=== PATIENT | female | born 1985 | race Caucasian/White ===

== ENCOUNTER → 2016-08-24 | Outpatient (CLI) | payer OTHER ==
[2016-08-24 14:12] LABS: CONTROL LINE INT CTR LINE PRESENT; HIV SCRN NEGATIVE (NEGATIVE); HIV SCRN1 NEGATIVE (NEGATIVE)
[2016-08-24 14:52] LABS: FREE T4 1.37 NG/DL (0.76-1.46)
== END ==
LOC: M SMT 09:12
PROVIDERS: ATTEND Specialist
DX: Z36 Encounter for antenatal screening of mother (principal)

== ENCOUNTER → 2016-10-04 | Outpatient (CLI) | payer OTHER ==
--- NOTE | 2016-10-04 16:20 | REP ---
Clinical: Anatomical evaluation. Comparison: 06/30/2016 . Findings: Examination demonstrates a single live intrauterine in cephalic presentation. motion is identified by technologist. Placenta is noted posteriorly and grade zero without evidence for placenta previa or abruption. Amniotic fluid volume is normal. Cervix measures 3.2 cm in length and appears closed. No evidence for nuchal cord. Gestational age by current measurements 19 weeks 4 day with MARV 02/24/2017 . FHR equals 147 beats per minute. BPD 4.7 cm 20 weeks 1 day HC 17.3 cm 19 weeks 6 days AC 14.3 cm 19 weeks 5 days FL 3.1 cm 19 weeks for date HL 3.0 cm 20 weeks 0 days HC/AC ratio 1.21 Estimated weight 304 grams ( 49th percentile). Anatomical assessment demonstrates normal structures including cranium, choroid plexus, cavum, cerebellum/posterior fossa, facial features, lungs, four-chamber heart/ventricular outflow tracts, diaphragm, stomach, cord insertion/three-vessel cord, kidneys/bladder, spine, and extremities. Impression: Single live intrauterine in cephalic presentation. Anatomical assessment is complete and normal. Signed by Gilson Quiroz MD 10/04/2016 04:11 P
== END ==
LOC: M SMT 15:02
PROVIDERS: ATTEND Specialist
DX: Z36 Encounter for antenatal screening of mother (principal); Z3A.19 19 weeks gestation of pregnancy

== ENCOUNTER → 2016-11-12 | Outpatient (CLI) | payer OTHER ==
[2016-11-12 17:10] LABS: FREE T4 1.08 NG/DL (0.76-1.46)
[2016-11-12 17:46] LABS: MEAN CORPUSCULAR HEMOGLOBIN 32.9 pg (27.0-33.0); MEAN CORPUSCULAR VOLUME 96.8 fl (80.0-96.0); RED CELL DISTRIBUTION WIDTH 12.8 % (11.5-14.5); WHITE BLOOD COUNT 8.8 K/mm3 (4.0-10.0)
== END ==
LOC: M SMT 13:12
PROVIDERS: ATTEND Obstetrics & Gynecology
DX: Z36 Encounter for antenatal screening of mother (principal); Z3A.00 Weeks of gestation of pregnancy not specified

== ENCOUNTER → 2016-12-14 | Outpatient (CLI) | payer OTHER ==
[2016-12-14 14:36] LABS: FREE T4 1.14 NG/DL (0.76-1.46)
== END ==
LOC: M SMT 10:51
PROVIDERS: ATTEND Obstetrics & Gynecology
DX: Z36 Encounter for antenatal screening of mother (principal); Z3A.00 Weeks of gestation of pregnancy not specified

== ENCOUNTER → 2017-01-25 | Outpatient (CLI) | payer OTHER ==
[~2017-01-25] MED LIST: COLA100C5 PO; IBUP1TAB7 PO; LEVO25TA5 PO; OXYC1TAB23 PO; PERCOCET PO; PRENTAB55 PO
[2017-01-25 13:41] LABS: FREE T4 1.53 NG/DL (0.76-1.46)
== END ==
LOC: M SMT 08:41
PROVIDERS: ATTEND Obstetrics & Gynecology
DX: Z36 Encounter for antenatal screening of mother (principal); Z3A.00 Weeks of gestation of pregnancy not specified

== ENCOUNTER 2017-03-10 05:47 | Inpatient (IN) | payer OTHER ==
[~2017-03-10] VITALS: Ht 152.4 cm; Wt 65.0 kg
[2017-03-10] VITALS (7 sets, daily range): BP systolic 115–151; BP diastolic 69–90
[2017-03-10] MEDS ORDERED: LACTATED RINGER'S 1000 ML IV STA (06:25)
[2017-03-10] MEDS ORDERED: LR 1,000 ML IV SCH ×3 (06:25→15:15)
[2017-03-10] MEDS ORDERED: OXYTOCIN DRIP 30 UNITS in APPROPRIATE DILUENT 1 EA IV SCH (06:30)
[2017-03-10 07:07] LABS: MEAN CORPUSCULAR HGB CONC 35.6 g/dl (32.0-36.5); MEAN CORPUSCULAR VOLUME 92.8 fl (80.0-96.0); RED CELL DISTRIBUTION WIDTH 12.1 % (11.5-14.5); WHITE BLOOD COUNT 9.7 K/mm3 (4.0-10.0)
[2017-03-10] MEDS ORDERED: PRENTAB55 PO (07:10)
[2017-03-10] MEDS ORDERED: LEVO25TA5 PO (07:10)
--- NOTE | 2017-03-10 07:28 | HPE ---
DATE OF ADMISSION: 03/10/2017 Graciela is a 31-year-old, 1, para 0, at 41-6/7 weeks with an expected date of confinement (EDC) of 02/25/2017 based on last menstrual period and confirmed by first trimester ultrasound. She presents to labor and delivery today with a report of contractions that started approximately 0300 on 03/09/2017 and have been about 6 minutes apart and moderately uncomfortable. She does report a question of spontaneous rupture of membranes on the 09 of March at approximately 1930. Reports positive bloody show and continued leaking of fluid. The fetus has been active. care was initiated at [facility] in the first trimester. course complicated by a history of hypothyroidism that has been well controlled with levothyroxine 175 mcg. OBSTETRICAL HISTORY: Primigravida. OBSTETRICAL LABORATORIES: Blood type O positive. Antibody screen negative. Rubella immune. VDRL nonreactive. Urine culture no growth. Hepatitis B surface antigen negative. HIV negative. Hepatitis C antibody negative. Gonorrhea and chlamydia negative. She did undergo [facility] for genetic screening and returned a normal result with a male fetus. Her gestational diabetic screening was normal at 62 and her GBS is negative. PAST MEDICAL HISTORY: 1. Hypothyroid. 2. Childhood varicella. FAMILY HISTORY: Hypothyroid. SOCIAL HISTORY: The patient is single. Her mother is at bedside and supportive. She is a nonsmoker. Denies alcohol and drug use. No history of sexually transmitted infections and denies history of abuse - physical, sexual and emotional. ALLERGIES: No known drug allergies. CURRENT MEDICATIONS: - levothyroxine 175 mcg - vitamins OBJECTIVE: Temperature 98.9, pulse 64, blood pressure 135/90. She is alert and oriented times three, mildly uncomfortable with her contractions. heart rate is 143, moderate variability, positive accelerations, positive early decelerations, camilla approximately every 6 minutes. They do palpate moderate. Her abdomen is gravid, cephalic presentation. Estimated weight 7-1/2 pounds. Sterile speculum exam negative pooling, negative Valsalva, positive Nitrazine, negative fern, inconclusive that she is actually ruptured. SVE: 80/ -2. ASSESSMENT: Intrauterine at 41-6/7 weeks. heart rate category one. Latent labor prodromal. PLAN: Admit the patient to labor and delivery. Labs including a pre-eclamptic profile. Out of bed ad savannah. Clear liquid diet. Did discuss the plan for labor augmentation with IV Pitocin. Reviewed risks and benefits. The patient does desire to proceed with labor augmentation with IV Pitocin. All her questions have been answered. We did discuss her desire for alternative pain management. I do anticipate active labor and a spontaneous vaginal delivery. MTDD
[2017-03-10 07:29] LABS: ALT/SGPT 38 U/L (12-78); AST/SGOT 44 U/L (15-37); BILIRUBIN,TOTAL 0.6 MG/DL (0.2-1.0); CREATININE FOR GFR 0.53 MG/DL (0.55-1.02); GLOMERULAR FILTRATION RATE > 60.0 (>60)
[2017-03-10] MEDS ORDERED: FENTANYL 2MCG/ML ROPIVACAINE 0.2% IN 0.9% NACL 200ML IVBAG As Ordered ONE (09:03)
[2017-03-10] MEDS ORDERED: diphenhydrAMINE INJ 50MG/ML VIAL (J1200) IV PRN (11:00)
[2017-03-10] MEDS ORDERED: EPIDURAL COMMENT XX SCH (11:00)
[2017-03-10] MEDS ORDERED: ePHEDrine SULFATE 25 MG/5 ML(5MG/ML) SYRINGE IV PRN (11:00)
[2017-03-10] MEDS ORDERED: LACTATED RINGER'S 1000 ML IV PRN (11:00)
[2017-03-10] MEDS ORDERED: FENTANYL/ROPIVACAINE/NACL BAG 200 ML EPIDURAL SCH (11:00)
[2017-03-10] MEDS ORDERED: REFRIGERATOR IV KEYS XX PRN (11:00)
[2017-03-10] MEDS ORDERED: ONDANSETRON 4MG/2ML VIAL (J2405) IV PRN ×3 (11:00→15:15)
[2017-03-10] MEDS ORDERED: EPIDURAL/PCA KEYS XX PRN (11:00)
[2017-03-10] MEDS ORDERED: NALOXONE INJ 0.4 MG/1 ML VIAL (J2310) IV PRN ×3 (11:00→13:50)
[2017-03-10] MEDS ORDERED: BICITRA 30ML SOLN UDC As Ordered ONE (13:07)
[2017-03-10] MEDS ORDERED: ceFAZolin 2 GM/D5W 50 ML IV BAG (J0690) As Ordered ONE (13:07)
[2017-03-10] MEDS ORDERED: BICITRA 30ML SOLN UDC PO ONE (13:15)
[2017-03-10] MEDS ORDERED: LIDOCAINE PRES-FREE 2% 10ML AMP As Ordered ONE ×2 (13:19→13:52)
[2017-03-10] MEDS ORDERED: MORPHINE PRES-FREE INJ 10 MG/10 ML VIAL (J2274) As Ordered ONE (13:46)
[2017-03-10] MEDS ORDERED: NALBUPHINE HCL 10 MG/ML AMP (J2300) IV PRN (13:50)
[2017-03-10] MEDS ORDERED: METOCLOPRAMIDE INJ 10MG/2ML VIAL (J2765) IV PRN ×2 (13:50→15:15)
[2017-03-10] MEDS ORDERED: KETOROLAC 60 MG/2 ML VIAL (J1885) As Ordered ONE (13:52)
[2017-03-10] MEDS ORDERED: ONDANSETRON 4MG/2ML VIAL (J2405) As Ordered ONE (13:52)
[2017-03-10 13:55] LABS: CORD GAS ABE A -1.8; CORD GAS HCO3 A 24.9 MEQ/L; CORD GAS PCO2 A 49.3 mmHg; CORD GAS PH A 7.321 UNITS; CORD GAS PO2 A 25.4 mmHg; CORD GAS SBC A 21.9 MEQ/L; CORD GAS TCO2 A 26.4 MEQ/L
[2017-03-10 13:55] LABS: CORD GAS ABE V -2.6; CORD GAS HCO3 V 23.7 MEQ/L; CORD GAS O2 SAT V 56.7 %; CORD GAS PCO2 V 46.5 mmHg; CORD GAS PH V 7.325 UNITS; CORD GAS PO2 V 26.2 mmHg; CORD GAS SBC V 21.3 MEQ/L; CORD GAS TCO2 V 25.1 MEQ/L
[2017-03-10] MEDS ORDERED: OXYTOCIN INJ 10 UNITS/ML VIAL (J2590) As Ordered ONE (14:00)
[2017-03-10] MEDS ORDERED: PERCOCET PO (14:39)
[2017-03-10] MEDS ORDERED: IBUP1TAB7 PO (14:40)
[2017-03-10] MEDS ORDERED: OXYTOCIN DRIP 30 UNITS in APPROPRIATE DILUENT 1 EA IV ONE (14:45)
[2017-03-10] MEDS ORDERED: DOCUSATE SODIUM 100 MG CAP PO PRN (14:45)
[2017-03-10] MEDS ORDERED: PERCOCET 5MG/325MG TAB PO PRN ×3 (14:45→15:15)
[2017-03-10] MEDS ORDERED: RHOGAM 300 MCG (1500 IU) INJ (J2790) IM SCH (14:45)
[2017-03-10] MEDS ORDERED: MOM 30ML SUSPENSION UDC PO PRN (14:45)
[2017-03-10] MEDS ORDERED: MEASLES,MUMPS,RUBELLA VACCINE INJ (MMR-II) (90707) SC SCH (14:45)
[2017-03-10] MEDS ORDERED: fentaNYL 100 MCG/2 ML INJECTION (J3010) IV PRN (15:15)
[2017-03-10] MEDS: KETOROLAC 30 MG/ML VIAL (J1885) IV SCH (21:35)
[2017-03-10] MEDS: PRENATAL VITAMINS CHEWABLE TABLET PO SCH (21:36)
[2017-03-11] MEDS: KETOROLAC 30 MG/ML VIAL (J1885) IV SCH ×3 (02:47→14:07)
[2017-03-11 02:55] VITALS: BP 113/55
[2017-03-11 05:45] VITALS: BP 111/57
[2017-03-11] MEDS: LEVOTHYROXINE 25MCG TABLET (0.025MG) PO SCH (06:31)
[2017-03-11 07:32] LABS: MEAN CORPUSCULAR HGB CONC 35.1 g/dl (32.0-36.5); MEAN CORPUSCULAR VOLUME 93.8 fl (80.0-96.0); RED CELL DISTRIBUTION WIDTH 12.4 % (11.5-14.5); WHITE BLOOD COUNT 11.2 K/mm3 (4.0-10.0)
[2017-03-11] MEDS: PRENATAL VITAMINS CHEWABLE TABLET PO SCH (08:12)
--- NOTE | 2017-03-11 09:16 | RO ---
DATE OF PROCEDURE: 03/10/2017 PREPROCEDURE DIAGNOSIS: Non-reassuring heart rate tracing. POSTPROCEDURE DIAGNOSIS: Non-reassuring heart rate tracing. PROCEDURE: Primary lower transverse section. SURGEON: Priscila Lee MD METALLURGICAL TESTER: Bucky Krishnan DO ANESTHESIA: Epidural ESTIMATED BLOOD LOSS: 500 mL. INTRAVENOUS FLUIDS: 1100 mL of lactated Ringer's solution. URINE OUTPUT: 150 mL. PREOPERATIVE ANTIBIOTICS: 2 grams of Ancef OPERATIVE FINDINGS: Liveborn male infant. scores 7 and 8. Weight was 3180 grams. SPECIMENS: Cord blood and cord gases. Cord gases 7.32, 7.325 with base excesses of -1.8 and -2.6. INDICATIONS FOR OPERATION: This patient is a 31-year-old 1 who presented at 41 weeks with premature rupture of membranes. Her labor was augmented with Pitocin and during her intrapartum course, she was noted to have repetitive late decelerations, which was corrected with position change and oxygen. Pitocin was eventually discontinued. The patient continued to have a category 2 heart rate tracing with repetitive variable decelerations. Her cervical exam was 2 cm, 90% effaced, -2 station, which was unchanged from prior exam approximately 2 hours ago. At this point, the patient was remote from delivery, and I made a decision to proceed with a primary lower transverse section secondary to non-reassuring heart rate tracing DESCRIPTION OF PROCEDURE: After informed consent was obtained and written consent was reviewed, the patient was brought to the operating room where she was placed in supine position with a left lateral tilt. She was then prepped and draped in a normal sterile fashion. A Prince catheter was placed and set to gravity. A time-out in the operating room was then performed, identifying the patient, procedure to be performed as well as drug allergies. Anesthesia was tested and deemed to be adequate. A Pfannenstiel skin incision was then made and carried down to the underlying rectus fascia. The fascia was scored, and this incision was extended bilaterally. The fascia was then dissected off the underlying rectus muscles both superiorly and inferiorly. The rectus muscles were in the midline. The peritoneum was then entered. The vesicouterine peritoneum was then identified, was tented and excised to create a bladder flap. The bladder blade was then placed to retract back the bladder. Curvilinear incision was then made in the lower uterine segment. The head was then delivered through the uterine incision with the aid of a Kiwi vacuum. There was a nuchal cord, which was reduced, followed by delivery of shoulders and corpus. The cord was clamped times two. The was taken over to the warmer where Dr. Pritchett, Water [employer], awaited. Cord blood and gases were obtained. The placenta was then drained and delivered grossly intact. The uterus was then exteriorized and cleared of all clots and debris. The uterine incision was then closed in two layers using #0 Vicryl first layer in a running locking fashion, followed by a second layer for imbrication in a running nonlocking fashion. The abdomen was then suctioned. The uterus was returned in the patient's abdomen. Surgical sites were inspected and noted to be hemostatic. The anterior peritoneum was then reapproximated with #3-0 Vicryl. The rectus muscles were reapproximated with #3- 0 Vicryl. The fascia was then closed with #0 Vicryl in a running nonlocking fashion. The subcutaneous tissue was then irrigated and suctioned. Several subdermal stitches were placed with #3-0 Vicryl and the skin was closed with #4- 0 Monocryl in a subcuticular fashion. The incision was then cleaned and dried. Mastisol was applied above and below the incision. Steri-Strips were applied over the incision, and the incision was dressed. The patient was then taken to recovery in stable condition. Counts were correct. The patient decided to name her son HARISH
[2017-03-11 10:00] VITALS: BP 127/71
[2017-03-11 14:00] VITALS: BP 123/83
[2017-03-11 18:21] VITALS: BP 115/62
[2017-03-11 22:00] VITALS: BP 120/76
[2017-03-11] MEDS: IBUPROFEN 800 MG TAB PO SCH (22:58)
[2017-03-12] MEDS: LEVOTHYROXINE 25MCG TABLET (0.025MG) PO SCH (05:25)
[2017-03-12] MEDS: IBUPROFEN 800 MG TAB PO SCH ×2 (06:01→14:56)
[2017-03-12 06:36] VITALS: BP 115/61
[2017-03-12] MEDS: PRENATAL VITAMINS CHEWABLE TABLET PO SCH (08:06)
[2017-03-12] MEDS ORDERED: COLA100C5 PO (11:09)
[2017-03-12] MEDS ORDERED: OXYC1TAB23 PO (11:09)
== END 2017-03-12 17:00 | disposition home or self-care (01) | DRG 540 ==
LOC: M LDI 05:47 → M OBS 15:41
PROVIDERS: ADMIT Obstetrics & Gynecology; ATTEND Obstetrics & Gynecology
PROC: 10D00Z1 Extraction of Products of Conception, Low, Open Approach (ICD-10-PCS; principal; 2017-03-10 07:41)
DX: O48.0 Post-term pregnancy (principal); E03.9 Hypothyroidism, unspecified; Z37.0 Single live birth; Z3A.41 41 weeks gestation of pregnancy; O99.284 Endocrine, nutritional and metabolic diseases complicating childbirth; O76 Abnormality in fetal heart rate and rhythm complicating labor and delivery

== ENCOUNTER → 2017-06-22 | Outpatient (REF) | payer OTHER ==
[2017-06-22 16:24] LABS: FREE T4 1.03 NG/DL (0.76-1.46)
== END ==
LOC: M LABDRAW1 14:46
PROVIDERS: ATTEND Nurse Practitioner Family
DX: E06.3 Autoimmune thyroiditis (principal)

== ENCOUNTER → 2017-12-19 | Outpatient (REF) | payer MEDICAID ==
[2017-12-19 17:53] LABS: FREE T4 1.41 NG/DL (0.76-1.46); THYROID STIMULATING HORMONE 0.287 uIU/ML (0.358-3.740)
== END ==
LOC: M LAB REF 17:20
DX: E06.3 Autoimmune thyroiditis (principal)

== ENCOUNTER → 2018-02-27 | Outpatient (REF) | payer MEDICAID ==
[2018-02-27 12:21] LABS: FREE T4 1.16 NG/DL (0.76-1.46)
[2018-02-27 12:21] LABS: THYROID STIMULATING HORMONE 0.117 uIU/ML (0.358-3.740)
== END ==
LOC: M LABDRAW1 09:53
DX: E03.9 Hypothyroidism, unspecified (principal)
CPT/HCPCS: 84443

== ENCOUNTER → 2019-02-21 | Outpatient (REF) | payer MEDICAID, SELFPAY ==
[2019-02-23 14:17] LABS: HPV HYBRID CAPTURE II Negative (Negative)
== END ==
LOC: M LAB REF 17:19
PROVIDERS: ATTEND Advanced Practice Midwife
DX: Z12.4 Encounter for screening for malignant neoplasm of cervix (principal)

== ENCOUNTER → 2019-03-15 | Outpatient (CLI) | payer MEDICAID, SELFPAY ==
[2019-03-15 18:14] LABS: FREE T4 1.27 NG/DL (0.76-1.46); THYROID STIMULATING HORMONE 0.559 uIU/ML (0.358-3.740)
== END ==
LOC: M SMT 14:48
PROVIDERS: ATTEND Obstetrics & Gynecology
DX: E03.9 Hypothyroidism, unspecified (principal)

== ENCOUNTER → 2019-08-02 | Outpatient (REF) | payer MEDICAID ==
[2019-08-02 12:16] LABS: INFLUENZA A AMPLIFICATION NEGATIVE (NEGATIVE); INFLUENZA B AMPLIFICATION POSITIVE (NEGATIVE)
== END ==
LOC: M LAB REF 11:22
PROVIDERS: ATTEND Physician Assistant
DX: J11.1 Influenza due to unidentified influenza virus with other respiratory manifestations (principal)

== ENCOUNTER → 2020-03-12 | Outpatient (CLI) | payer MEDICAID, OTHER ==
[2020-03-12 15:19] LABS: ALBUMIN 4.1 GM/DL (3.2-5.2); ALT/SGPT 22 U/L (12-78); BILIRUBIN,TOTAL 0.7 MG/DL (0.2-1.0); BLOOD UREA NITROGEN 12 MG/DL (7-18); CALCIUM LEVEL 8.9 MG/DL (8.5-10.1); CARBON DIOXIDE LEVEL 29 MEQ/L (21-32); CHLORIDE LEVEL 107 MEQ/L (98-107); CHOLESTEROL LEVEL 175 MG/DL (<200); CHOLESTEROL RISK RATIO 2.215 (<5); GLOMERULAR FILTRATION RATE > 60.0 (>60); GLUCOSE, FASTING 77 MG/DL (70-100); HDL CHOLESTEROL 79 MG/DL (>40); LDL CHOLESTEROL 87 MG/DL (<100); NON-HDL-C 96 MG/DL; POTASSIUM SERUM 3.9 MEQ/L (3.5-5.1); SODIUM LEVEL 140 MEQ/L (136-145); THYROID STIMULATING HORMONE 0.964 uIU/ML (0.358-3.740); TOTAL PROTEIN 7.2 GM/DL (6.4-8.2); TRIGLYCERIDES LEVEL 47 MG/DL (<150)
== END ==
LOC: M PLALAB 09:25
PROVIDERS: ATTEND Nurse Practitioner Family
DX: E03.9 Hypothyroidism, unspecified (principal)

== ENCOUNTER → 2020-07-18 | Outpatient (CLI) | payer OTHER ==
[2020-07-18 12:51] LABS: BASO # 0.1 10^3/uL (0.0-0.2); BASO % 1.1 % (0.0-1.0); EOS # 0.3 10^3/uL (0.0-0.5); EOS % 4.2 % (0.0-3.0); HEMATOCRIT 41.1 % (36.0-47.0); HEMOGLOBIN 13.2 g/dl (12.0-15.5); LYMPH # 1.7 10^3/uL (1.5-5.0); LYMPH % 27.4 % (24.0-44.0); MEAN CORPUSCULAR HEMOGLOBIN 27.1 pg (27.0-33.0); MEAN CORPUSCULAR HGB CONC 32.1 g/dl (32.0-36.5); MEAN CORPUSCULAR VOLUME 84.4 fl (80.0-96.0); MONO # 0.5 10^3/uL (0.0-0.8); MONO % 8.6 % (0.0-5.0); NEUTROPHILS # 3.6 10^3/uL (1.5-8.5); NEUTROPHILS % 58.4 % (36.0-66.0); PLATELET COUNT, AUTOMATED 272 10^3/uL (150-450); RED BLOOD COUNT 4.87 10^6/uL (4.00-5.40); WHITE BLOOD COUNT 6.2 10^3/uL (4.0-10.0)
[2020-07-18 13:30] LABS: BLOOD UREA NITROGEN 11 MG/DL (7-18); CALCIUM LEVEL 9.1 MG/DL (8.5-10.1); CARBON DIOXIDE LEVEL 29 MEQ/L (21-32); CHLORIDE LEVEL 104 MEQ/L (98-107); CREATININE FOR GFR 0.77 MG/DL (0.55-1.30); FREE T4 1.39 NG/DL (0.76-1.46); GLOMERULAR FILTRATION RATE > 60.0 (>60); GLUCOSE, FASTING 86 MG/DL (70-100); MAGNESIUM LEVEL 2.1 MG/DL (1.8-2.4); POTASSIUM SERUM 4.1 MEQ/L (3.5-5.1); SODIUM LEVEL 138 MEQ/L (136-145); TOTAL 25(OH) VITAMIN D 38.6 NG/ML (30.0-100.0)
== END ==
LOC: M WUC 11:13
PROVIDERS: ATTEND Nurse Practitioner Family
DX: E03.9 Hypothyroidism, unspecified (principal); R00.2 Palpitations

== ENCOUNTER → 2020-09-11 | Outpatient (CLI) | payer OTHER ==
[2020-09-11 20:26] LABS: FREE T4 1.21 NG/DL (0.76-1.46); THYROID STIMULATING HORMONE 1.78 uIU/ML (0.358-3.740)
== END ==
LOC: M WUC 15:14
PROVIDERS: ATTEND Nurse Practitioner Family
DX: E03.9 Hypothyroidism, unspecified (principal)

== ENCOUNTER 2021-06-01 20:35 | Emergency (ER) | payer OTHER ==
[~2021-06-01] VITALS: Ht 152.4 cm; Wt 50.0 kg
--- OUTSIDE RECORDS SUMMARY | 2021-06-01 20:44 | CCD ---
Author Author [facility] Organization [facility] Address Unknown Phone Unavailable Care Team Providers Care Product Support Specialist Name Role Phone Pleskach, Selin MEATCUTTER Unavailable Unavailable Pleskach, Selin MEATCUTTER Unavailable Unavailable Pleskach, Selin MEATCUTTER Unavailable Unavailable Pleskach, Selin MEATCUTTER Unavailable Unavailable Pleskach, Selin MEATCUTTER Unavailable Unavailable Pleskach, Selin MEATCUTTER Unavailable Unavailable Pleskach, Selin MEATCUTTER Unavailable Unavailable Pleskach, Selin MEATCUTTER Unavailable Unavailable Pleskach, Selin MEATCUTTER Unavailable Unavailable Pleskach, Selin MEATCUTTER Unavailable Unavailable Pleskach, Selin MEATCUTTER Unavailable Unavailable Pleskach, Selin MEATCUTTER Unavailable Unavailable Pleskach, Selin MEATCUTTER Unavailable Unavailable Pleskach, Selin MEATCUTTER Unavailable Unavailable Pleskach, Selin MEATCUTTER Unavailable Unavailable Pleskach, Selin MEATCUTTER Unavailable Unavailable Pleskach, Selin MEATCUTTER Unavailable Unavailable Pleskach, Selin MEATCUTTER Unavailable Unavailable Pleskach, Selin MEATCUTTER Unavailable Unavailable Pleskach, Selin MEATCUTTER Unavailable Unavailable Pleskach, Selin MEATCUTTER Unavailable Unavailable Pleskach, Selin MEATCUTTER Unavailable Unavailable Pleskach, Selin MEATCUTTER Unavailable Unavailable Pleskach, Selin MEATCUTTER Unavailable Unavailable Pleskach, Selin MEATCUTTER Unavailable Unavailable Pleskach, Selin MEATCUTTER Unavailable Unavailable Pleskach, Selin MEATCUTTER Unavailable Unavailable Pleskach, Selin MEATCUTTER Unavailable Unavailable Pleskach, Selin MEATCUTTER Unavailable Unavailable Pleskach, Selin MEATCUTTER Unavailable Unavailable Pleskach, Selin MEATCUTTER Unavailable Unavailable Pleskach, Selin MEATCUTTER Unavailable Unavailable Pleskach, Selin MEATCUTTER Unavailable Unavailable Pleskach, Selin MEATCUTTER Unavailable Unavailable Pleskach, Selin MEATCUTTER Unavailable Unavailable Pleskach, Selin MEATCUTTER Unavailable Unavailable Pleskach, Selin MEATCUTTER Unavailable Unavailable Pleskach, Selin MEATCUTTER Unavailable Unavailable Pleskach, Selin MEATCUTTER Unavailable Unavailable Pleskach, Selin MEATCUTTER Unavailable Unavailable Pleskach, Selin MEATCUTTER Unavailable Unavailable Pleskach, Selin MEATCUTTER Unavailable Unavailable Pleskach, Selin MEATCUTTER Unavailable Unavailable Pleskach, Selin MEATCUTTER Unavailable Unavailable Re-disclosure Warning The records that you are about to access may contain information from federally-assisted alcohol or drug abuse programs. If such information is present, then the following federally mandated warning applies: This information has been disclosed to you from records protected by federal confidentiality rules (42 CFR part 2). The federal rules prohibit you from making any further disclosure of this information unless further disclosure is expressly permitted by the written consent of the person to whom it pertains or as otherwise permitted by 42 CFR part 2. A general authorization for the release of medical or other information is NOT sufficient for this purpose. The Federal rules restrict any use of the information to criminally investigate or prosecute any alcohol or drug abuse patient.The records that you are about to access may contain highly sensitive health information, the redisclosure of which is protected by Article 27-F of the [place] Public [facility] law. If you continue you may have access to information: Regarding HIV / AIDS; Provided by facilities licensed or operated by the [place] Office of Mental Health; or Provided by the [facility] Office for People With Developmental Disabilities. If such information is present, then the following [facility] mandated warning applies: This information has been disclosed to you from confidential records which are protected by state law. State law prohibits you from making any further disclosure of this information without the specific written consent of the person to whom it pertains, or as otherwise permitted by law. Any unauthorized further disclosure in violation of state law may result in a fine or senior living sentence or both. A general authorization for the release of medical or other information is NOT sufficient authorization for further disc losure. Family History Family Member Name Family Member Gender Family Member Status Date o f Status Description Data Source(s) Unknown Male Problem [facility] ([facility]) Unknown Male Problem [facility] ([facility]) Unknown Male Problem [facility] ([facility]) Unknown Male Problem [facility] ([facility]) Encounters Encounter Providers Location Date Indications Data Source(s ) Outpatient Attender: Selin Lea [facility] Main Office 09/12/2020 0 9:30:00 AM EST [facility] ([facility] Outpatient Attender: Selin Lea [facility] Main Office 07/18/2020 0 9:15:00 AM EST [facility] ([facility] Immunizations Vaccine Date Status Description Data Source(s) COVID-19 VACCINE Moderna 10/21/2020 12:00:00 AM EDT completed [facility] Vaccine Series Complete: YESThis Data wa s Submitted to [facility]. COVID-19 VACCINE Moderna 09/23/2020 12:00:00 AM EDT completed [facility] Vaccine Series Complete: NOThis Data was Submitted to [facility]. Medications No Information Insurance Providers Payer name Policy type / Coverage type Policy ID Covered libertarian ID Covered libertarian's relationship to johnson Policy Johnson Plan Information [facility] Medigap Part B [id number] Self 1 [id number] [facility] Community Plan Commercial [id number] Self Medicaid P [id number] S [id number] MEDICAID [id number] SP [id number] SELF PAY ONLY SP [facility] Plan Medigap Part B [id number] Self 1 [id number] [employer] Medigap Part B [id number] Family Dependent T [id number] [facility] Plan Commercial [id number] Self [id number] [facility] [employer] Plan Medigap Part B [id number] Self 1 [id number] [employer] Medigap Part B [id number] Family Dependent T [id number] [employer] Medigap Part B [id number] Family Dependent T [id number] Medicaid [place] Medigap Part B [id number] Self [id number] [facility] O [id number] S [id number] [employer] Medigap Part B [id number] Family Dependent Medicaid [place] Medigap Part B [id number] Self SELF PAY UNAVAILABLE SP UNAVAILA BLE [employer] COMMUNITY PLAN [facility] [id number] SP [id number] UN[facility] COMMUNITY [facility] [id number] SP [id number] [facility] P UNAVAILABLE [id number] S UNAVAILABLE CANCER SERVICES PROGRAM UNKNOWN SP UNKNOWN UN COMMUNITY PLAN [facility] [id number] SP [id number] [id number] SP [id number] Problems, Conditions, and Diagnoses Code Display Name Description Problem Type Effective Dates Data Source(s) [id number] Hypothyroidism Hypothyroidism Problem 09/12/2020 12:00: 00 AM EST [facility] ([facility] Surgeries/Procedures No Information Results ID Date Data Source [id number] 09/11/2020 03:16:00 PM EST [facility] ([facility] Name Value Range Interpretation Code Description Data Cora rce(s) Supporting Document(s) Thyrotropin [Units/volume] in Serum or Plasma 1.780 uIU/ML 0.358-3.74 0 [facility] ([facility] Thyroxine (T4) free [Mass/volume] in Serum or Plasma 1.21 ng/dL 0.76- 1.46 [facility] ([facility] ID Date Data Source [id number] 07/18/2020 11:13:00 AM EST [facility] ([facility] Name Value Range Interpretation Code Description Data Cora rce(s) Supporting Document(s) Glucose, Fasting 86 mg/dL 70-100 [facility] ([facility] Creatinine For GFR 0.77 mg/dL 0.55-1.30 [facility] ([facility] Blood Urea Nitrogen 11 mg/dL 7-18 [facility] ([facility] Sodium Level 138 meq/L 136-145 [facility] Potassium Serum 4.1 meq/L 3.5-5.1 [facility] Glomerular Filtration Rate Laboratory test result [facility] ([facility] <content>Units are mL/min/1.73 m2</content>
<content></content>
<content>Chronic Kidney Disease Staging per NKF:</content>
<content></content>
<content>Stage I & II GFR >=60 Normal to Mildly Decreased</content>
<content>Stage III GFR 30- 59 Moderately Decreased</content>
<content>Stage IV GFR 15-29 Severely Decreased</content>
<content>Stage V GFR <15 Very Little GFR Left</content>
<content>ESRD GFR <15 on DIRECTOR TRUST</content>
<content></content> Anion Gap 5 meq/L 8-16 [facility] Carbon Dioxide Level 29 meq/L 21-32 [facility] ([facility] Chloride Level 104 meq/L 98-107 [facility] ([facility] Calcium Level 9.1 mg/dL 8.5-10.1 [facility] ([facility] ID Date Data Source [id number] 07/18/2020 11:13:00 AM EST [facility] ([facility] Name Value Range Interpretation Code Description Data Cora rce(s) Supporting Document(s) Calcidiol [Mass/volume] in Serum or Plasma 38.6 ng/mL 30.0-100.0 [facility] ([facility] Magnesium [Mass/volume] in Serum or Plasma 2.1 mg/dL 1.8-2.4 [facility] ([facility] ID Date Data Source [id number] 07/18/2020 11:13:00 AM EST [facility] ([facility] Name Value Range Interpretation Code Description Data Cora rce(s) Supporting Document(s) White Blood Count 6.2 10 4.0-10.0 [facility] ([facility] Red Blood Count 4.87 10 4.00-5.40 [facility] ([facility] Hematocrit 41.1 % 36.0-47.0 [facility] ([facility] Mean Corpuscular Volume 84.4 fl 80.0-96.0 M [facility] ([facility] Hemoglobin 13.2 g/dL 12.0-15.5 [facility] ([facility] Mean Corpuscular HGB Conc 32.1 g/dL 32.0-36.5 [facility] ([facility] Red Cell Distribution Width 14.8 % 11.5-14.5 [facility] Mean Corpuscular Hemoglobin 27.1 pg 27.0-33.0 [facility] Platelet Count, Automated 272 10 150-450 [facility] Neutrophils % 58.4 % 36.0-66.0 [facility] Eos % 4.2 % 0.0-3.0 [facility] Butts % 8.6 % 0.0-5.0 [facility] Lymph % 27.4 % 24.0-44.0 [facility] Nucleated Red Blood Cell % 0.0 % 0-0 [facility] ([facility] Baso % 1.1 % 0.0-1.0 [facility] Immature Granulocyte % 0.3 % 0-3.0 [facility] Neutrophils # 3.6 10 1.5-8.5 [facility] Lymph # 1.7 10 1.5-5.0 [facility] Butts # 0.5 10 0.0-0.8 [facility] Baso # 0.1 10 0.0-0.2 [facility] Eos # 0.3 10 0.0-0.5 [facility] ID Date Data Source [id number] 07/18/2020 11:13:00 AM EST [facility] ([facility] Name Value Range Interpretation Code Description Data Cora rce(s) Supporting Document(s) Thyrotropin [Units/volume] in Serum or Plasma 1.960 uIU/ML 0.358-3.74 0 [facility] Thyroxine (T4) free [Mass/volume] in Serum or Plasma 1.39 ng/dL 0.76- 1.46 [facility] ([facility] Procedure Social History Code Duration Value Status Description Data Source(s ) Smoking 09/12/2020 12:00:00 AM EST Patient has never smoked co mpleted Patient has never smoked [facility] Vital Signs ID Date Data Source UNK Name Value Range Interpretation Code Description Data Source(s) Systolic blood pressure 131 mm[Hg] 131 mm[Hg] M [facility] ([facility] Diastolic blood pressure 88 mm[Hg] 88 mm[Hg] [facility] Heart rate 80 /min 80 /min [facility] Body temperature 97.5 [degF] 97.5 [degF] [facility] Respiratory rate 16 /min 16 /min [facility] ( [facility] Body height 60.50 [in_i] 60.50 [in_i] [facility] 5'0.50" Body weight 114.25 [lb_av] 114.25 [lb_av] [facility] T ([facility] Oxygen saturation in Arterial blood by Pulse oximetry 96 % 96 % [facility] [place] body weight 100 [lb_av] 100 [lb_av] [facility] T ([facility] Body mass index (BMI) [Ratio] 21.9 kg/m2 21.9 k g/m2 [facility] Systolic blood pressure 114 mm[Hg] 114 mm[Hg] M [facility] Body weight 118.00 [lb_av] 118.00 [lb_av] [facility] T ([facility] Oxygen saturation in Arterial blood by Pulse oximetry 99 % 99 % [facility] [place] body weight 100 [lb_av] 100 [lb_av] [facility] T ([facility] Body mass index (BMI) [Ratio] 22.7 kg/m2 22.7 k g/m2 [facility] Body height 60.50 [in_i] 60.50 [in_i] [facility] 5'0.50" Diastolic blood pressure 63 mm[Hg] 63 mm[Hg] [facility] Heart rate 61 /min 61 /min [facility] Body temperature 98.5 [degF] 98.5 [degF] [facility] Respiratory rate 16 /min 16 /min [facility] ( [facility]
[2021-06-01] MEDS ORDERED: LIDOCAINE W/EPINEPHRINE 1% 20ML VIAL As Ordered ONE (21:30)
[2021-06-01] MEDS ORDERED: LIDOCAINE W/EPINEPHRINE 1% 20ML VIAL SC ONE (21:30)
[2021-06-01] MEDS ORDERED: BOOSTRIX/ADACEL VACCINE (DIPHTH/PERTUSS/ACELL/TETANUS) 0.5ML SYR IM ONE (22:05)
--- OUTSIDE RECORDS SUMMARY | 2021-06-01 22:19 | CCD ---
Author Author [facility] Organization [facility] Address Unknown Phone Unavailable Care Team Providers Care Verifying Specialist Name Role Phone Pleskach, Selin SERVICE DISPATCHER Unavailable Unavailable Pleskach, Selin SERVICE DISPATCHER Unavailable Unavailable Pleskach, Selin SERVICE DISPATCHER Unavailable Unavailable Pleskach, Selin SERVICE DISPATCHER Unavailable Unavailable Pleskach, Selin SERVICE DISPATCHER Unavailable Unavailable Pleskach, Selin SERVICE DISPATCHER Unavailable Unavailable Pleskach, Selin SERVICE DISPATCHER Unavailable Unavailable Pleskach, Selin SERVICE DISPATCHER Unavailable Unavailable Pleskach, Selin SERVICE DISPATCHER Unavailable Unavailable Pleskach, Selin SERVICE DISPATCHER Unavailable Unavailable Pleskach, Selin SERVICE DISPATCHER Unavailable Unavailable Pleskach, Selin SERVICE DISPATCHER Unavailable Unavailable Pleskach, Selin SERVICE DISPATCHER Unavailable Unavailable Pleskach, Selin SERVICE DISPATCHER Unavailable Unavailable Pleskach, Selin SERVICE DISPATCHER Unavailable Unavailable Pleskach, Selin SERVICE DISPATCHER Unavailable Unavailable Pleskach, Selin SERVICE DISPATCHER Unavailable Unavailable Pleskach, Selin SERVICE DISPATCHER Unavailable Unavailable Pleskach, Selin SERVICE DISPATCHER Unavailable Unavailable Pleskach, Selin SERVICE DISPATCHER Unavailable Unavailable Pleskach, Selin SERVICE DISPATCHER Unavailable Unavailable Pleskach, Selin SERVICE DISPATCHER Unavailable Unavailable Pleskach, Selin SERVICE DISPATCHER Unavailable Unavailable Pleskach, Selin SERVICE DISPATCHER Unavailable Unavailable Pleskach, Selin SERVICE DISPATCHER Unavailable Unavailable Pleskach, Selin SERVICE DISPATCHER Unavailable Unavailable Pleskach, Selin SERVICE DISPATCHER Unavailable Unavailable Pleskach, Selin SERVICE DISPATCHER Unavailable Unavailable Pleskach, Selin SERVICE DISPATCHER Unavailable Unavailable Pleskach, Selin SERVICE DISPATCHER Unavailable Unavailable Pleskach, Selin SERVICE DISPATCHER Unavailable Unavailable Pleskach, Selin SERVICE DISPATCHER Unavailable Unavailable Pleskach, Selin SERVICE DISPATCHER Unavailable Unavailable Pleskach, Selin SERVICE DISPATCHER Unavailable Unavailable Pleskach, Selin SERVICE DISPATCHER Unavailable Unavailable Pleskach, Selin SERVICE DISPATCHER Unavailable Unavailable Pleskach, Selin SERVICE DISPATCHER Unavailable Unavailable Pleskach, Selin SERVICE DISPATCHER Unavailable Unavailable Pleskach, Selin SERVICE DISPATCHER Unavailable Unavailable Pleskach, Selin SERVICE DISPATCHER Unavailable Unavailable Pleskach, Selin SERVICE DISPATCHER Unavailable Unavailable Pleskach, Selin SERVICE DISPATCHER Unavailable Unavailable Pleskach, Selin SERVICE DISPATCHER Unavailable Unavailable Pleskach, Selin SERVICE DISPATCHER Unavailable Unavailable Re-disclosure Warning The records that [...] is protected by Article 27-F of the [place] State Public Health law. If you continue you may have access to information: Regarding HIV / AIDS; Provided by facilities licensed or operated by the [facility] Office of Mental Health; or Provided by the [facility] Office for People With Developmental Disabilities. If such information is present, then the following [facility] mandated warning applies: This information has been [...] law may result in a fine or skilled nursing sentence or both. A general authorization for the release of medical or other information is NOT sufficient authorization for further disc losure. Family History Family Member Name Family Member Gender Family Member Status Date o f Status Description Data Source(s) Unknown Male Problem [facility] ([facility]) Unknown Male Problem [facility] ([facility]) Unknown Male Problem [facility] ([facility]) Unknown Male Problem [facility] ([facility]) Encounters Encounter Providers Location Date Indications Data Source(s ) Outpatient Attender: Selin Lea [facility] Main Office 09/12/2020 0 9:30:00 AM EST [facility] ([facility] Outpatient Attender: Selin Lea [facility] Main Office 07/18/2020 0 9:15:00 AM EST [facility] ([facility] Immunizations Vaccine Date Status Description Data Source(s) COVID-19 VACCINE Moderna 10/21/2020 12:00:00 AM EDT completed [facility] Vaccine Series Complete: YESThis Data wa s Submitted to [facility] Via [employer]. COVID-19 VACCINE Moderna 09/23/2020 12:00:00 AM EDT completed [facility] Vaccine Series Complete: NOThis Data was Submitted to [facility] [employer]. Medications No Information Insurance Providers Payer name Policy type / Coverage type Policy ID Covered alliance party ID Covered alliance party's relationship to johnson Policy Johnson Plan Information [facility] Community Plan Medigap Part B [id number] [facility] Community Plan Commercial [id number] Self Medicaid P [id number] S [id number] MEDICAID [id number] SP [id number] SELF PAY ONLY SP [facility] Community Plan Medigap Part B [id number] Self 1 [id number] [place] Medigap Part B [id number] Family Dependent T [id number] [facility] Community Plan Commercial [id number] [facility] Community Plan Medigap Part B [id number] Self 1 [id number] BS [place] Medigap Part B [id number] Family Dependent T [id number] BS [place] Medigap Part B [id number] Family Dependent T [id number] Medicaid [place] Medigap Part B [id number] Self [id number] [facility] O [id number] S [id number] BS [place] Medigap Part B [id number] Family Dependent Medicaid [place] Medigap Part B [id number] Self SELF PAY UNAVAILABLE SP UNAVAILA BLE [facility] [id number] SP [id number] [facility] [id number] SP [id number] [facility] P UNAVAILABLE [id number] S UNAVAILABLE CANCER SERVICES PROGRAM UNKNOWN SP UNKNOWN [facility] [id number] SP [id number] SP [id number] Problems, Conditions, and Diagnoses Code Display Name Description Problem Type Effective Dates Data Source(s) [id number] Hypothyroidism Hypothyroidism Problem 09/12/2020 12:00: 00 AM EST [facility] ([facility] Surgeries/Procedures No Information Results ID Date Data Source [id number] 09/11/2020 03:16:00 PM EST [facility] ([facility] Name Value Range Interpretation Code Description Data Cora rce(s) Supporting Document(s) Thyrotropin [Units/volume] in Serum or Plasma 1.780 uIU/ML 0.358-3.74 0 [facility] ([facility] Thyroxine (T4) free [Mass/volume] in Serum or Plasma 1.21 ng/dL 0.76- 1.46 [facility] ([facility] ID Date Data Source [id number] 07/18/2020 11:13:00 AM EST [facility] ([facility] Name Value Range Interpretation Code Description Data Cora e(s) Supporting Document(s) Glucose, Fasting 86 mg/dL 70-100 [facility] ([facility] Creatinine For GFR 0.77 [...] Little GFR Left</content>
<content>ESRD GFR <15 on TIRE BAGGER</content>
<content></content> Anion Gap 5 meq/L 8-16 [facility] Carbon Dioxide Level 29 meq/L 21-32 [facility] ([facility] Chloride Level 104 meq/L 98-107 [facility] ([facility] Calcium Level 9.1 mg/dL 8.5-10.1 [facility] ([facility] ID Date Data Source [id number] 07/18/2020 11:13:00 AM EST [facility] ([facility] Name Value Range Interpretation Code Description Data Cora e(s) Supporting Document(s) Calcidiol [Mass/volume] in Serum or Plasma 38.6 ng/mL 30.0-100.0 [facility] ([facility] Magnesium [Mass/volume] in Serum or Plasma 2.1 mg/dL 1.8-2.4 [facility] ([facility] ID Date Data Source [id number] 07/18/2020 11:13:00 AM EST [facility] ([facility] [...] % 0.0-3.0 [facility] [place] % 8.6 % 0.0-5.0 [facility] ([facility] [...] 10 1.5-5.0 [facility] [place] # 0.5 10 0.0-0.8 [facility] Baso # 0.1 10 0.0-0.2 [facility] Eos # 0.3 10 0.0-0.5 [facility] ID Date Data Source [id number] 07/18/2020 11:13:00 AM EST [facility] ([facility] [...] mm[Hg] M [facility] ([facility] Heart rate 80 /min 80 /min [facility] ([facility] Body temperature 97.5 [degF] 97.5 [degF] [facility] Diastolic blood pressure 88 mm[Hg] 88 mm[Hg] [facility] Respiratory rate 16 /min 16 /min [facility] ( [facility] Body height 60.50 [in_i] 60.50 [in_i] [facility] ([facility] 5'0.50" Body weight 114.25 [lb_av] 114.25 [lb_av] [facility] T ([facility] Oxygen saturation in Arterial blood by Pulse oximetry 96 % 96 % [facility] ([facility] Cross body weight 100 [lb_av] 100 [lb_av] [facility] T ([facility] Body mass index (BMI) [Ratio] 21.9 kg/m2 21.9 k g/m2 [facility] ([facility] Systolic blood pressure 114 mm[Hg] 114 mm[Hg] M [facility] ([facility] Body height 60.50 [in_i] 60.50 [in_i] [facility] 5'0.50" Body weight 118.00 [lb_av] 118.00 [lb_av] [facility] T ([facility] Oxygen saturation in Arterial blood by Pulse oximetry 99 % 99 % [facility] Cross body weight 100 [lb_av] 100 [lb_av] [facility] T ([facility] Body mass index (BMI) [Ratio] 22.7 kg/m2 22.7 k g/m2 [facility] Diastolic blood pressure 63 mm[Hg] 63 mm[Hg] [facility] Heart rate 61 /min 61 /min [facility] Body temperature 98.5 [degF] 98.5 [degF] [facility] Respiratory rate 16 /min 16 /min [facility] ( [facility]
[2021-06-01] MEDS ORDERED: ACETAMINOPHEN 325 MG TAB PO ONE (23:05)
[2021-06-01 23:26] VITALS: BP 105/62
== END 2021-06-01 23:32 | disposition home or self-care (01) ==
LOC: M ED 20:35
DX: S61.412A Laceration without foreign body of left hand, initial encounter (principal); W26.0XXA Contact with knife, initial encounter; Y92.59 Other trade areas as the place of occurrence of the external cause; Y93.G1 Activity, food preparation and clean up; Y99.0 Civilian activity done for income or pay; Z79.890 Hormone replacement therapy

== ENCOUNTER → 2021-06-18 | Outpatient (REF) | payer OTHER ==
[2021-06-18 13:36] LABS: RSV AMPLIFICATION NEGATIVE (NEGATIVE)
== END ==
LOC: M LAB REF 12:30
PROVIDERS: ATTEND Physician Assistant
DX: R05.9 Cough, unspecified (principal); R50.9 Fever, unspecified

== ENCOUNTER → 2021-10-27 | Outpatient (CLI) | payer OTHER ==
[2021-10-27 14:33] LABS: ALBUMIN 4.1 GM/DL (3.2-5.2); ALT/SGPT 28 U/L (12-78); BILIRUBIN,TOTAL 0.4 MG/DL (0.2-1.0); BLOOD UREA NITROGEN 12 MG/DL (7-18); CARBON DIOXIDE LEVEL 31 MEQ/L (21-32); CHLORIDE LEVEL 106 MEQ/L (98-107); CHOLESTEROL LEVEL 159 MG/DL (<200); CHOLESTEROL RISK RATIO 2.038 (<5); CREATININE FOR GFR 0.67 MG/DL (0.55-1.30); FREE T4 1.33 NG/DL (0.76-1.46); GLOMERULAR FILTRATION RATE > 60.0 (>60); GLUCOSE, FASTING 66 MG/DL (70-100); HDL CHOLESTEROL 78 MG/DL (>40); LDL CHOLESTEROL 65 MG/DL (<100); NON-HDL-C 81 MG/DL; POTASSIUM SERUM 4.1 MEQ/L (3.5-5.1); SODIUM LEVEL 139 MEQ/L (136-145); THYROID STIMULATING HORMONE 0.411 uIU/ML (0.358-3.740); TOTAL PROTEIN 7.1 GM/DL (6.4-8.2); TRIGLYCERIDES LEVEL 82 MG/DL (<150)
== END ==
LOC: M PLALAB 11:32
PROVIDERS: ATTEND Nurse Practitioner Family
DX: Z00.00 Encounter for general adult medical examination without abnormal findings (principal)

== ENCOUNTER → 2021-12-03 | Outpatient (CLI) | payer OTHER ==
[2021-12-03 18:29] LABS: FREE T4 1.07 NG/DL (0.76-1.46); THYROID STIMULATING HORMONE 2.33 uIU/ML (0.358-3.740)
== END ==
LOC: M PLALAB 15:54
PROVIDERS: ATTEND Nurse Practitioner Family
DX: E03.9 Hypothyroidism, unspecified (principal)

== ENCOUNTER → 2022-05-06 | Outpatient (REF) | payer OTHER ==
[2022-05-06 19:07] LABS: FREE T4 1.21 NG/DL (0.76-1.46); THYROID STIMULATING HORMONE 1.22 uIU/ML (0.358-3.740)
[2022-05-06 19:31] LABS: FOLATE 7.8 NG/ML
== END ==
LOC: M PLALAB 16:48
PROVIDERS: ATTEND Nurse Practitioner Family
DX: L60.8 Other nail disorders (principal); R53.83 Other fatigue; E03.9 Hypothyroidism, unspecified

== ENCOUNTER → 2022-06-15 | Outpatient (REF) | payer OTHER | LOC: M SFHCDERM 16:28 | PROVIDERS: ATTEND Nurse Practitioner Family | DX: D23.61 Other benign neoplasm of skin of right upper limb, including shoulder (principal) ==

== ENCOUNTER → 2022-11-15 | Outpatient (CLI) | payer OTHER ==
[2022-11-15 15:59] LABS: THYROID STIMULATING HORMONE 2.378 uIU/ML (0.55-4.78)
[2022-11-15 16:01] LABS: FREE T4 1.36 NG/DL (0.89-1.76)
== END ==
LOC: M PLALAB 09:39
PROVIDERS: ATTEND Family Medicine
DX: E03.9 Hypothyroidism, unspecified (principal)

== ENCOUNTER → 2023-03-23 | Outpatient (REF) | payer OTHER | LOC: M SFHCWAGY 17:45 | PROVIDERS: ATTEND Nurse Practitioner Family | DX: Z12.4 Encounter for screening for malignant neoplasm of cervix (principal) ==

== ENCOUNTER → 2023-07-06 | Outpatient (CLI) | payer OTHER ==
[2023-07-06 18:01] LABS: ALBUMIN 3.9 G/DL (3.2-5.2); ALKALINE PHOSPHATASE 48 U/L (46-116); ALT/SGPT 20 U/L (7.0-40); AST/SGOT 24 U/L (<34); BILIRUBIN,TOTAL 0.4 MG/DL (0.3-1.2); BLOOD UREA NITROGEN 14 MG/DL (9-23); CARBON DIOXIDE LEVEL 26 MMOL/L (20-31); CHLORIDE LEVEL 105 MMOL/L (98-107); GLOMERULAR FILTRATION RATE > 60.0 (>60); GLUCOSE, FASTING 91 MG/DL (60-100); SODIUM LEVEL 139 MMOL/L (136-145); TOTAL PROTEIN 6.3 G/DL (5.7-8.2)
[2023-07-06 18:03] LABS: FREE T4 1.51 NG/DL (0.89-1.76)
== END ==
LOC: M PLALAB 15:55
PROVIDERS: ATTEND Registered Nurse
DX: E03.9 Hypothyroidism, unspecified (principal)

== ENCOUNTER → 2024-02-27 | Outpatient (REF) | payer OTHER ==
[2024-02-27 17:37] LABS: ALBUMIN 4.1 G/DL (3.2-5.2); ALKALINE PHOSPHATASE 46 U/L (46-116); ALT/SGPT 12 U/L (7.0-40); AST/SGOT 18 U/L (<34); BILIRUBIN,TOTAL 0.7 MG/DL (0.3-1.2); BLOOD UREA NITROGEN 12 MG/DL (9-23); CARBON DIOXIDE LEVEL 28 MMOL/L (20-31); CHLORIDE LEVEL 108 MMOL/L (98-107); CHOLESTEROL LEVEL 173 MG/DL (<200); CHOLESTEROL RISK RATIO 3.02 (<5); CREATININE FOR GFR 0.77 MG/DL (0.55-1.30); GLOMERULAR FILTRATION RATE > 60.0 (>60); GLUCOSE, FASTING 78 MG/DL (60-100); HDL CHOLESTEROL 57.1 MG/DL (>40); LDL CHOLESTEROL 102.5 MG/DL (<100); NON-HDL-C 115.9 MG/DL; POTASSIUM SERUM 4.3 MMOL/L (3.5-5.1); SODIUM LEVEL 142 MMOL/L (136-145); TRIGLYCERIDES LEVEL 67 MG/DL (<150)
[2024-02-27 17:39] LABS: THYROID STIMULATING HORMONE 5.221 uIU/ML (0.55-4.78)
== END ==
LOC: M LAB REF 16:21
PROVIDERS: ATTEND Family Medicine Addiction Medicine
DX: E03.9 Hypothyroidism, unspecified (principal)

== ENCOUNTER → 2024-09-27 | Outpatient (CLI) | payer OTHER ==
[2024-09-27 15:32] LABS: ALBUMIN 3.9 G/DL (3.2-5.2); ALKALINE PHOSPHATASE 58 U/L (35-104); ALT/SGPT 24 U/L (7.0-40); AST/SGOT 24 U/L (<34); BILIRUBIN,TOTAL 0.3 MG/DL (0.3-1.2); BLOOD UREA NITROGEN 11 MG/DL (9-23); CARBON DIOXIDE LEVEL 25 MMOL/L (20-31); CHLORIDE LEVEL 105 MMOL/L (98-107); CHOLESTEROL LEVEL 158 MG/DL (<200); CHOLESTEROL RISK RATIO 2.34 (<5); CREATININE FOR GFR 0.65 MG/DL (0.55-1.30); GLOMERULAR FILTRATION RATE > 60.0 (>58); GLUCOSE, FASTING 73 MG/DL (60-100); HDL CHOLESTEROL 67.4 MG/DL (>40); LDL CHOLESTEROL 68.4 MG/DL (<100); NON-HDL-C 90.6 MG/DL; POTASSIUM SERUM 4.1 MMOL/L (3.5-5.1); SODIUM LEVEL 141 MMOL/L (136-145); TOTAL PROTEIN 6.9 G/DL (5.7-8.2); TRIGLYCERIDES LEVEL 111 MG/DL (<150)
[2024-09-27 15:37] LABS: THYROID STIMULATING HORMONE 1.516 uIU/ML (0.55-4.78)
== END ==
LOC: M LAB 14:07
PROVIDERS: ATTEND Family Medicine Addiction Medicine
DX: E03.9 Hypothyroidism, unspecified (principal)

== ENCOUNTER → 2025-01-31 | Outpatient (CLI) | payer OTHER ==
[2025-01-31 17:37] LABS: ALT/SGPT 18 U/L (7.0-40); AST/SGOT 23 U/L (<34); CALCIUM LEVEL 8.8 MG/DL (8.5-10.1); CARBON DIOXIDE LEVEL 26 MMOL/L (20-31); CHLORIDE LEVEL 105 MMOL/L (98-107); CHOLESTEROL LEVEL 156 MG/DL (<200); CHOLESTEROL RISK RATIO 2.47 (<5); CREATININE FOR GFR 0.77 MG/DL (0.55-1.30); GLOMERULAR FILTRATION RATE > 90.0 (>58); LDL CHOLESTEROL 78.3 MG/DL (<100); NON-HDL-C 92.9 MG/DL; POTASSIUM SERUM 3.7 MMOL/L (3.5-5.1); SODIUM LEVEL 143 MMOL/L (136-145); TRIGLYCERIDES LEVEL 73 MG/DL (<150)
[2025-01-31 17:55] LABS: ESTIMATED AVERAGE GLUCOSE 100.0 MG/DL (60-110)
== END ==
LOC: M LAB 16:31
PROVIDERS: ATTEND Family Medicine Addiction Medicine
DX: E03.9 Hypothyroidism, unspecified (principal)